=== PATIENT | female | born 1950 | race Hispanic/Latino ===

== ENCOUNTER → 2020-05-09 | Outpatient (CLI) | payer MEDICARE ==
--- NOTE | 2020-05-09 18:11 | Diagnostic Imaging Report ---
TECHNIQUE: Magnetic resonance imaging of the LEFT foot was performed WITHOUT injected contrast. HISTORY: Pain COMPARISON: None available. DISCUSSION: Bone: This cortical erosion and marrow edema on the medial aspect of the first metatarsal head. No acute fractures identified. Joints: The joints are well aligned. Soft Tissues: The imaged flexor and extensor tendons are intact. There is medial foot ulcer adjacent first metatarsal head. There is diffuse soft tissue edema extending into the intrinsic foot muscles. IMPRESSION: 1. Foot ulcer with adjacent cortical erosion and marrow edema of the medial aspect of the first metatarsal head, compatible with osteomyelitis. No joint effusion or erosive changes within the joint to suggest septic arthritis. However, if there is high clinical suspicion for septic arthritis, direct fluid sampling can be considered. 2. Diffuse soft tissue edema extending into the intrinsic foot muscles most compatible with superimposed cellulitis. Signed by: Solitario Hawkins MD on 05/09/2020 6:07 PM
== END ==
LOC: MRI 14:57
PROVIDERS: ATTEND Podiatrist Foot & Ankle Surgery
DX: M86.072 Acute hematogenous osteomyelitis, left ankle and foot (principal)

== ENCOUNTER 2020-06-13 18:42 | Inpatient (IN) | payer MEDICARE ==
[~2020-06-13] VITALS: Ht 165.1 cm; Wt 86.2 kg
[2020-06-13] MEDS ORDERED: ASPIRIN 81 MG CHEW TAB PO ONE ×2 (19:30→23:30)
[2020-06-13 20:16] LABS: BASOPHILS % 0.1 % (0.0-1.0); EOSINOPHILS # (AUTO) 0.2 (0.0-0.4); EOSINOPHILS % 2.7 % (0.0-6.0); HEMOGLOBIN 7.2 g/dL (12.0-16.0); LYMPHOCYTES # (AUTO) 0.8 (1.0-3.2); MEAN CORPUSCULAR HGB CONC 32.1 g/dL (31-35); MEAN CORPUSCULAR VOLUME 93.3 fL (81-99); MONOCYTES # (AUTO) 0.5 (0.2-0.8); MONOCYTES % 6.7 % (4.4-11.3); NEUTROPHILS # (AUTO) 6.4 (2.1-6.9); NEUTROPHILS % 80.3 % (38.7-80.0); PLATELET COUNT 192 x10e3/uL (140-360)
[2020-06-13 20:17] LABS: HEMATOCRIT 22.4 % (34.2-44.1)
[2020-06-13 20:34] LABS: ALBUMIN 2.9 g/dL (3.5-5.0); ALBUMIN/GLOBULIN RATIO 0.7 (0.8-2.0); ANION GAP 16.2 mmol/L (8-16); CALCIUM 7.6 mg/dL (8.4-10.2); CREATININE, SERUM 2.09 mg/dL (0.57-1.11); POTASSIUM 4.2 mmol/L (3.5-5.1)
[2020-06-13 20:40] LABS: CREATINE KINASE MB 0.9 ng/mL (0-5.0)
[2020-06-13] MEDS ORDERED: FUROSEMIDE INJ 10 MG/ML 4 ML VIAL IV ONE (22:15)
[2020-06-13] MEDS ORDERED: FUROSEMIDE INJ 10 MG/ML 4 ML VIAL ONE (22:35)
[2020-06-14] VITALS (14 sets, daily range): BP systolic 136–173; BP diastolic 51–81
[2020-06-14] MEDS ORDERED: CIPRO500 MG PO (02:40)
[2020-06-14] MEDS ORDERED: HYDRALAZINE HCL25 MG PO (02:40)
[2020-06-14] MEDS ORDERED: NIFEDIPINE ER30 M1 PO (02:40)
[2020-06-14] MEDS ORDERED: ATORVASTATIN CA20 MG PO (02:40)
[2020-06-14] MEDS ORDERED: CLOPIDOGREL75 MG PO (02:40)
[2020-06-14] MEDS ORDERED: ISOSORBIDE MONO30 MG PO (02:40)
[2020-06-14] MEDS ORDERED: GABAPENTIN300 MG PO (02:40)
[2020-06-14] MEDS ORDERED: ALENDRONATE SOD70 MG PO (02:40)
[2020-06-14] MEDS ORDERED: LOSARTAN POTASS25 MG PO (02:40)
[2020-06-14] MEDS ORDERED: ELIQUIS5 M1 PO (02:40)
[2020-06-14] MEDS ORDERED: BACTRIM DS TAB1 EACH PO (02:40)
[2020-06-14] MEDS ORDERED: FUROSEMIDE40 MG PO (02:40)
[2020-06-14 07:37] LABS: BASOPHILS % 0.2 % (0.0-1.0); EOSINOPHILS # (AUTO) 0.4 (0.0-0.4); EOSINOPHILS % 6.4 % (0.0-6.0); LYMPHOCYTES # (AUTO) 0.9 (1.0-3.2); LYMPHOCYTES % 15.4 % (18.0-39.1); MEAN CORPUSCULAR HEMOGLOBIN 29.7 pg (28-32); MEAN CORPUSCULAR VOLUME 92.8 fL (81-99); MONOCYTES # (AUTO) 0.4 (0.2-0.8); MONOCYTES % 6.7 % (4.4-11.3); NEUTROPHILS # (AUTO) 4.2 (2.1-6.9); PLATELET COUNT 172 x10e3/uL (140-360); RED BLOOD COUNT 2.22 x10e6/uL (3.6-5.1)
[2020-06-14 07:38] LABS: ANION GAP 13.1 mmol/L (8-16); CALCIUM 7.6 mg/dL (8.4-10.2); CREATININE, SERUM 1.82 mg/dL (0.57-1.11); POTASSIUM 4.1 mmol/L (3.5-5.1)
[2020-06-14 07:45] LABS: HEMATOCRIT 20.6 % (34.2-44.1); HEMOGLOBIN 6.6 g/dL (12.0-16.0)
[2020-06-14] MEDS ORDERED: DEXTROSE 50% SYRINGE 50 ML IV PRN (09:45)
[2020-06-14] MEDS ORDERED: SODIUM CHLORIDE 0.9% 250ML 250 ML IV ONE (10:35)
[2020-06-14] MEDS ORDERED: SODIUM CHLORIDE 0.9% 250ML 250 ML ONE ×3 (10:46→17:24)
[2020-06-14] MEDS: PIPERACILLIN/TAZO 2.25 GM 50 ML IV SCH ×2 (10:47→16:40)
[2020-06-14] MEDS: FUROSEMIDE INJ 10 MG/ML 4 ML VIAL IV SCH ×2 (10:47→16:40)
[2020-06-14 11:10] LABS: THYROID STIMULATING HORMONE 1.034 uIU/mL (0.350-4.940)
[2020-06-14] MEDS: INSULIN LISPRO 100 UNIT/1 ML 3ML VIAL SQ SCH ×3 (11:30→22:00)
[2020-06-14] MEDS ORDERED: LIDOCAINE HCL 2% LOCAL INJ 5 ML SDV VIAL INJ ONE (12:30)
[2020-06-14] MEDS ORDERED: PROPOFOL IV EMULSION 10 MG/ML 20 ML VIAL ONE (12:30)
[2020-06-14 12:59] LABS: CREATINE KINASE MB 1.1 ng/mL (0-5.0)
[2020-06-14] MEDS: HYDRALAZINE HCL 100 MG TABLET PO SCH ×2 (16:00→22:00)
[2020-06-14] MEDS: NIFEDIPINE CR 30 MG TAB PO SCH (16:22)
[2020-06-14] MEDS: GABAPENTIN 300 MG CAP PO SCH (16:40)
[2020-06-14] MEDS ORDERED: ACETAMINOPHEN 325 MG TAB PO PRN (22:00)
[2020-06-14] MEDS: ATORVASTATIN 40 MG TAB PO SCH (22:00)
[2020-06-14] MEDS ORDERED: ACETAMINOPHEN 325 MG TAB ONE (22:11)
[2020-06-15] VITALS (8 sets, daily range): BP systolic 141–164; BP diastolic 44–61
[2020-06-15] MEDS: PIPERACILLIN/TAZO 2.25 GM 50 ML IV SCH ×3 (02:00→17:28)
[2020-06-15 06:10] LABS: BASOPHILS % 0.2 % (0.0-1.0); EOSINOPHILS # (AUTO) 0.4 (0.0-0.4); EOSINOPHILS % 6.7 % (0.0-6.0); HEMATOCRIT 28.1 % (34.2-44.1); HEMOGLOBIN 9.2 g/dL (12.0-16.0); LYMPHOCYTES % 17.7 % (18.0-39.1); MEAN CORPUSCULAR HEMOGLOBIN 29.8 pg (28-32); MEAN CORPUSCULAR HGB CONC 32.7 g/dL (31-35); MEAN CORPUSCULAR VOLUME 90.9 fL (81-99); MONOCYTES # (AUTO) 0.6 (0.2-0.8); MONOCYTES % 9.5 % (4.4-11.3); NEUTROPHILS # (AUTO) 3.8 (2.1-6.9); NEUTROPHILS % 65.7 % (38.7-80.0); PLATELET COUNT 171 x10e3/uL (140-360); RED BLOOD COUNT 3.09 x10e6/uL (3.6-5.1); RED CELL DISTRIBUTION WIDTH 13.9 % (11.7-14.4)
[2020-06-15 06:29] LABS: ANION GAP 13.6 mmol/L (8-16); CALCIUM 7.5 mg/dL (8.4-10.2); CREATININE, SERUM 1.47 mg/dL (0.57-1.11); POTASSIUM 3.6 mmol/L (3.5-5.1)
[2020-06-15] MEDS: INSULIN LISPRO 100 UNIT/1 ML 3ML VIAL SQ SCH ×4 (07:30→20:58)
[2020-06-15] MEDS: FUROSEMIDE INJ 10 MG/ML 4 ML VIAL IV SCH ×2 (08:45→17:28)
[2020-06-15] MEDS: ISOSORBIDE MONONITRATE 30 MG TAB CR PO SCH (08:47)
[2020-06-15] MEDS: GABAPENTIN 300 MG CAP PO SCH ×2 (08:47→17:28)
[2020-06-15] MEDS: HYDRALAZINE HCL 100 MG TABLET PO SCH ×3 (08:47→20:58)
[2020-06-15] MEDS: NIFEDIPINE CR 30 MG TAB PO SCH ×2 (08:48→17:00)
[2020-06-15] MEDS: ATORVASTATIN 40 MG TAB PO SCH (20:22)
[2020-06-16] VITALS (8 sets, daily range): BP systolic 110–167; BP diastolic 51–66
[2020-06-16] MEDS: PIPERACILLIN/TAZO 2.25 GM 50 ML IV SCH ×3 (01:28→17:02)
[2020-06-16 05:54] LABS: EOSINOPHILS # (AUTO) 0.4 (0.0-0.4); EOSINOPHILS % 5.1 % (0.0-6.0); HEMATOCRIT 29.4 % (34.2-44.1); HEMOGLOBIN 9.8 g/dL (12.0-16.0); LYMPHOCYTES % 14.7 % (18.0-39.1); MEAN CORPUSCULAR HEMOGLOBIN 30.3 pg (28-32); MEAN CORPUSCULAR HGB CONC 33.3 g/dL (31-35); MONOCYTES # (AUTO) 0.5 (0.2-0.8); MONOCYTES % 7.2 % (4.4-11.3); NEUTROPHILS % 72.4 % (38.7-80.0); PLATELET COUNT 167 x10e3/uL (140-360); RED BLOOD COUNT 3.23 x10e6/uL (3.6-5.1); RED CELL DISTRIBUTION WIDTH 13.4 % (11.7-14.4)
[2020-06-16 06:24] LABS: ANION GAP 13.6 mmol/L (8-16); CALCIUM 7.6 mg/dL (8.4-10.2); CREATININE, SERUM 1.22 mg/dL (0.57-1.11); POTASSIUM 3.6 mmol/L (3.5-5.1)
[2020-06-16] MEDS: INSULIN LISPRO 100 UNIT/1 ML 3ML VIAL SQ SCH ×4 (07:30→21:00)
[2020-06-16] MEDS: ISOSORBIDE MONONITRATE 30 MG TAB CR PO SCH (08:48)
[2020-06-16] MEDS: FUROSEMIDE INJ 10 MG/ML 4 ML VIAL IV SCH ×2 (08:48→17:02)
[2020-06-16] MEDS: GABAPENTIN 300 MG CAP PO SCH ×2 (08:48→17:02)
[2020-06-16] MEDS: HYDRALAZINE HCL 100 MG TABLET PO SCH ×3 (08:48→21:04)
[2020-06-16] MEDS: NIFEDIPINE CR 30 MG TAB PO SCH ×2 (08:49→17:02)
[2020-06-16] MEDS: ATORVASTATIN 40 MG TAB PO SCH (21:04)
[2020-06-17] VITALS (8 sets, daily range): BP systolic 108–147; BP diastolic 48–92
[2020-06-17] MEDS: PIPERACILLIN/TAZO 2.25 GM 50 ML IV SCH ×3 (01:14→17:10)
[2020-06-17] MEDS: HYDRALAZINE HCL 100 MG TABLET PO SCH ×3 (08:45→21:06)
[2020-06-17] MEDS: FUROSEMIDE INJ 10 MG/ML 4 ML VIAL IV SCH (08:45)
[2020-06-17] MEDS: NIFEDIPINE CR 30 MG TAB PO SCH ×2 (08:46→17:09)
[2020-06-17] MEDS: ISOSORBIDE MONONITRATE 30 MG TAB CR PO SCH (08:46)
[2020-06-17] MEDS: GABAPENTIN 300 MG CAP PO SCH ×2 (08:46→17:08)
[2020-06-17] MEDS: INSULIN LISPRO 100 UNIT/1 ML 3ML VIAL SQ SCH ×4 (08:47→21:00)
[2020-06-17] MEDS ORDERED: PEG (High)/E-LYTE SOLN 4,000 ML BTL PO ONE (09:00)
[2020-06-17 09:08] LABS: INR 0.93; PROTHROMBIN TIME 12.9 seconds (11.9-14.5)
[2020-06-17] MEDS: SENNA-S TABLET PO SCH ×2 (10:34→17:08)
[2020-06-17] MEDS: ATORVASTATIN 40 MG TAB PO SCH (21:07)
[2020-06-18] VITALS (8 sets, daily range): BP systolic 104–153; BP diastolic 47–65
[2020-06-18] MEDS: PIPERACILLIN/TAZO 2.25 GM 50 ML IV SCH ×3 (01:21→20:52)
[2020-06-18 05:19] LABS: EOSINOPHILS # (AUTO) 0.4 (0.0-0.4); EOSINOPHILS % 5.2 % (0.0-6.0); HEMATOCRIT 29.7 % (34.2-44.1); HEMOGLOBIN 9.7 g/dL (12.0-16.0); LYMPHOCYTES # (AUTO) 1.4 (1.0-3.2); MEAN CORPUSCULAR HEMOGLOBIN 29.4 pg (28-32); MEAN CORPUSCULAR HGB CONC 32.7 g/dL (31-35); MONOCYTES # (AUTO) 0.8 (0.2-0.8); MONOCYTES % 10.7 % (4.4-11.3); NEUTROPHILS # (AUTO) 5.1 (2.1-6.9); NEUTROPHILS % 65.8 % (38.7-80.0); PLATELET COUNT 207 x10e3/uL (140-360); RED CELL DISTRIBUTION WIDTH 13.2 % (11.7-14.4)
[2020-06-18 05:47] LABS: ANION GAP 14.4 mmol/L (8-16); CALCIUM 7.6 mg/dL (8.4-10.2); CREATININE, SERUM 1.03 mg/dL (0.57-1.11); POTASSIUM 3.4 mmol/L (3.5-5.1)
[2020-06-18] MEDS: INSULIN LISPRO 100 UNIT/1 ML 3ML VIAL SQ SCH ×4 (07:30→20:59)
[2020-06-18] MEDS ORDERED: POTASSIUM CHLORIDE 20MEQ/100ML 100 ML IV ONE ×2 (09:00→16:30)
[2020-06-18] MEDS: FUROSEMIDE INJ 10 MG/ML 4 ML VIAL IV SCH ×2 (12:45→12:48)
[2020-06-18] MEDS: HYDRALAZINE HCL 100 MG TABLET PO SCH ×3 (12:45→20:52)
[2020-06-18] MEDS: GABAPENTIN 300 MG CAP PO SCH ×2 (12:45→16:32)
[2020-06-18] MEDS: ISOSORBIDE MONONITRATE 30 MG TAB CR PO SCH (12:45)
[2020-06-18] MEDS: SENNA-S TABLET PO SCH ×2 (12:46→16:32)
[2020-06-18] MEDS: NIFEDIPINE CR 30 MG TAB PO SCH ×2 (12:46→16:33)
[2020-06-18] MEDS ORDERED: MIDAZOLAM HCL 2 MG/2 ML VIAL ONE (12:53)
[2020-06-18] MEDS ORDERED: SODIUM CHLORIDE 0.9% 250ML 250 ML ONE (13:17)
[2020-06-18] MEDS: ATORVASTATIN 40 MG TAB PO SCH (20:52)
[2020-06-19 00:41] VITALS: BP 144/57
[2020-06-19] MEDS: PIPERACILLIN/TAZO 2.25 GM 50 ML IV SCH ×2 (03:39→08:43)
[2020-06-19 05:16] VITALS: BP 149/51
[2020-06-19] MEDS: INSULIN LISPRO 100 UNIT/1 ML 3ML VIAL SQ SCH (07:30)
[2020-06-19 08:16] VITALS: BP 154/50
[2020-06-19] MEDS: SENNA-S TABLET PO SCH (08:47)
[2020-06-19] MEDS: FUROSEMIDE INJ 10 MG/ML 4 ML VIAL IV SCH (08:47)
[2020-06-19] MEDS: HYDRALAZINE HCL 100 MG TABLET PO SCH (08:47)
[2020-06-19] MEDS: GABAPENTIN 300 MG CAP PO SCH (08:47)
[2020-06-19] MEDS: ISOSORBIDE MONONITRATE 30 MG TAB CR PO SCH (08:47)
[2020-06-19] MEDS: NIFEDIPINE CR 30 MG TAB PO SCH (08:48)
[2020-06-19 09:18] VITALS: BP 154/50
[2020-06-19] MEDS ORDERED: OMEPRAZOLE40 MG PO (10:37)
[2020-06-19] MEDS ORDERED: K DUR10 MEQ PO (10:38)
[2020-06-19] MEDS ORDERED: HEMOCYTE PLUS1 EACH PO (10:39)
[2020-06-19 12:40] VITALS: BP 121/57
[2020-06-19 16:29] VITALS: BP 145/53
== END 2020-06-19 18:25 | disposition home or self-care (01) | DRG 291 ==
LOC: ER 18:44 → INTOOBSV 06-14 01:38 → OBSVTOIN 06-14 01:38 → ERHOLD 06-14 01:38 → MED/SURG3 06-14 01:44
PROVIDERS: ADMIT Internal Medicine; ATTEND Internal Medicine
PROC: 30233N1 Transfusion of Nonautologous Red Blood Cells into Peripheral Vein, Percutaneous Approach (ICD-10-PCS; principal; 2020-06-14)
PROC: 0DB48ZX Excision of Esophagogastric Junction, Via Natural or Artificial Opening Endoscopic, Diagnostic (ICD-10-PCS; 2020-06-18)
PROC: 0DBL8ZX Excision of Transverse Colon, Via Natural or Artificial Opening Endoscopic, Diagnostic (ICD-10-PCS; 2020-06-18)
PROC: 0DB98ZX Excision of Duodenum, Via Natural or Artificial Opening Endoscopic, Diagnostic (ICD-10-PCS; 2020-06-18 08:30)
PROC: 0DB68ZX Excision of Stomach, Via Natural or Artificial Opening Endoscopic, Diagnostic (ICD-10-PCS; 2020-06-18 08:30)
DX: I13.0 Hypertensive heart and chronic kidney disease with heart failure and stage 1 through stage 4 chronic kidney disease, or unspecified chronic kidney disease (principal); I50.33 Acute on chronic diastolic (congestive) heart failure; K57.31 Diverticulosis of large intestine without perforation or abscess with bleeding; M86.672 Other chronic osteomyelitis, left ankle and foot; D62 Acute posthemorrhagic anemia; E11.65 Type 2 diabetes mellitus with hyperglycemia; K29.70 Gastritis, unspecified, without bleeding; K43.9 Ventral hernia without obstruction or gangrene; R09.02 Hypoxemia; I48.0 Paroxysmal atrial fibrillation; E11.51 Type 2 diabetes mellitus with diabetic peripheral angiopathy without gangrene; L89.629 Pressure ulcer of left heel, unspecified stage; L89.619 Pressure ulcer of right heel, unspecified stage; Z86.73 Personal history of transient ischemic attack (TIA), and cerebral infarction without residual deficits; H91.90 Unspecified hearing loss, unspecified ear; N28.9 Disorder of kidney and ureter, unspecified; E11.22 Type 2 diabetes mellitus with diabetic chronic kidney disease; N18.30 Chronic kidney disease, stage 3 unspecified; E11.69 Type 2 diabetes mellitus with other specified complication; I65.29 Occlusion and stenosis of unspecified carotid artery; Z95.828 Presence of other vascular implants and grafts; K44.9 Diaphragmatic hernia without obstruction or gangrene; K63.5 Polyp of colon; K64.0 First degree hemorrhoids; Z20.828 Contact with and (suspected) exposure to other viral communicable diseases
CPT/HCPCS: 36415; 43239; 45378; 45385; 71045; 71250; 74176; 80048; 80053; 82270; 82550; 82553; 82607; 82746; 82948; 83036; 83540; 83880; 84443; 84466; 84484; 85025; 85610; 86850; 86900; 86920; 88305; 88312; 93005; 93306; 93880; 97139; 99251; 99284; J1940; J2001; J2250; J2543; J3480; J7050; P9016; U0002